=== PATIENT | male | born 1965 | race Caucasian/White ===

== ENCOUNTER → 2016-08-09 | Outpatient (CLI) | payer OTHER ==
[~2016-08-09] MED LIST: ALBU17IN INH; ALIG4CAP PO; AZAT5TAB PO; BENT20TA PO; BUDE3CAP PO; ESOM1CAP5 PO; FLAG500T PO; INFL10VL IV; LIAL1.2T PO; OMEP40CA2 PO; RIZA10TA2 PO
== END ==
LOC: M RAD 09:11
PROVIDERS: ATTEND Internal Medicine Gastroenterology
DX: Z53.8 Procedure and treatment not carried out for other reasons (principal)

== ENCOUNTER → 2016-08-13 | Outpatient (CLI) | payer OTHER ==
--- NOTE | 2016-08-13 09:42 | REP ---
Clinical: Primary sclerosing cholangitis. Technique: Guerrero scale ultrasound using curved array transducer. Findings: The liver and pancreas are normal in contour, size, and echogenicity without focal hepatic or pancreatic lesions identified. The gallbladder is normal without gallstones, wall thickening or pericholecystic fluid. No biliary ductal dilatation is appreciated, and the common bile duct measures 4.7 mm diameter. The right kidney is normal in reniform shape with 1.4 cm upper pole cyst, but without hydronephrosis and measures 11.8 x 5.4 x 6.5 cm cm. No ascites. Visualized portions of the abdominal aorta normal. Impression: Normal right upper quadrant and gallbladder abdominal ultrasound. Incidental 1.4 cm right renal cyst. Signed by Marco Antonio Oliveira MD 08/13/2016 09:33 A
== END ==
LOC: M RAD 07:36
PROVIDERS: ATTEND Internal Medicine Gastroenterology
DX: K51.90 Ulcerative colitis, unspecified, without complications (principal); K83.0 Cholangitis; Z86.010 Personal history of colon polyps; N28.1 Cyst of kidney, acquired